=== PATIENT | male | born 1980 | race Caucasian/White ===

== ENCOUNTER 2017-12-07 02:14 | Emergency (ER) | payer BC ==
[2017-12-07 02:50] VITALS: BP 129/65
[2017-12-07] MEDS ORDERED: Ketorolac INJ* 30 MG/ML 1 ML VIAL IV PUSH ONE (02:57)
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
== END 2017-12-07 03:10 | disposition left against medical advice (07) ==
LOC: ED 02:14
DX: R07.9 Chest pain, unspecified (principal); F17.210 Nicotine dependence, cigarettes, uncomplicated; Z53.21 Procedure and treatment not carried out due to patient leaving prior to being seen by health care provider
CPT/HCPCS: 93005; 96374; 99282